=== PATIENT | female | born 1945 | race Caucasian/White ===

== ENCOUNTER → 2016-08-12 | Outpatient (CLI) | payer MEDICARE, OTHER ==
[~2016-08-12] MED LIST: DETROL LA 4 MG C4 MG PO; FLOVENT DISKUS50 MCG INH; METOPROLOL TART25 MG PO; NEURONTIN 100100 MG PO; OMEPRAZOLE40 MG PO; PHENERGAN 25 MG25 M1 PO; PRAVASTATIN SOD80 MG PO; RANITIDINE HCL300 MG PO; VIT D PO
== END ==
LOC: LAB 08:07
DX: R10.9 Unspecified abdominal pain (principal); R63.4 Abnormal weight loss
CPT/HCPCS: 36415; 82565; 84520

== ENCOUNTER → 2016-08-14 | Outpatient (CLI) | payer MEDICARE, OTHER | LOC: CT 07-30 15:00 | DX: R10.9 Unspecified abdominal pain (principal); R63.4 Abnormal weight loss | CPT/HCPCS: J7050; Q9962 ==

== ENCOUNTER → 2016-08-27 | Day surgery (SDC) | payer MEDICARE, OTHER ==
[~2016-08-27] VITALS: Ht 162.6 cm; Wt 61.2 kg
== END | disposition home or self-care (01) ==
LOC: OR 08:00
PROVIDERS: Internal Medicine Gastroenterology
PROC: 0DB78ZX Excision of Stomach, Pylorus, Via Natural or Artificial Opening Endoscopic, Diagnostic (ICD-10-PCS; principal; 2016-08-27 13:45)
PROC: 0DJD8ZZ Inspection of Lower Intestinal Tract, Via Natural or Artificial Opening Endoscopic (ICD-10-PCS; 2016-08-27 13:45)
DX: K29.50 Unspecified chronic gastritis without bleeding (principal); K57.30 Diverticulosis of large intestine without perforation or abscess without bleeding; K64.0 First degree hemorrhoids; K66.0 Peritoneal adhesions (postprocedural) (postinfection); D64.0 Hereditary sideroblastic anemia; I10 Essential (primary) hypertension; E78.5 Hyperlipidemia, unspecified; K21.9 Gastro-esophageal reflux disease without esophagitis; Z85.828 Personal history of other malignant neoplasm of skin; Z80.42 Family history of malignant neoplasm of prostate; Z79.899 Other long term (current) drug therapy; Z90.49 Acquired absence of other specified parts of digestive tract; Z90.710 Acquired absence of both cervix and uterus
CPT/HCPCS: J7030